=== PATIENT | female | born 1940 | race Caucasian/White ===

== ENCOUNTER 2017-02-05 12:40 | Emergency (ER) | payer MEDICARE, OTHER ==
[~2017-02-05 12:40] MED LIST: ADVAI250I INH; ADVAI250I PO; ALBU0.086 NEB; CARD240C6 PO; CLIN1CAP6 PO; COUM5TAB PO; CYMB30CA PO; DUONI NEB; ENAL10TA7 PO; FURO1TAB93 PO; GABA300C3 PO; GABA600T PO; HYDR-3535 PO; IPRA0.02 NEB; LEVO150T7 PO; LORTA10 PO; LOVA40TA PO; PRED10 PO; SPIRCAP INH; SYNT100T PO; TIOT18I INH; WARF5TAB PO; Z.0.OXYGENDME NC; [UNRECOGNIZED DRUG - SUPPLY]
[2017-02-05 13:10] VITALS: BP 135/76; PULSE 73; RESP 20; TEMP 98.3; O2SAT 93
[2017-02-05] MEDS ORDERED: LIPI10TA PO (13:16)
[2017-02-05] MEDS ORDERED: HYDR-4107 PO (13:16)
[2017-02-05] MEDS ORDERED: COUM1TAB PO (13:16)
[2017-02-05] MEDS ORDERED: GABA100C4 PO (13:16)
[2017-02-05] MEDS ORDERED: THYROID MED (13:16)
--- NOTE | 2017-02-05 13:27 | PD ---
HPI Chief Complaint: Respiratory Symptoms Time Seen by Provider: 13:05 Travel History International Travel<30 days: No Contact w/Intl Traveler<30days: No Traveled to known affect area: No History of Present Illness HPI The patient is a 76-year-old female who presents to the emergency department for shortness of breath. The patient has a history of COPD and normally uses nebulizers multiple times during the day. The daughter also states the patient will smoke after an albuterol nebulizer. However, they're currently without power and the patient has been having increasing shortness of breath. The patient is not oxygen dependent. She does have a history of COPD. The patient also has a history of recent dementia which has been progressing over the last several months. The daughter also states the patient recently had surgery on January 25 by a physician at [facility], surgery was performed in the lower aspect of the abdomen, they do note some clear drainage from the wound. The patient denies any fever, chest pain, but does complain of mild shortness of breath. She denies any nausea, vomiting, or abdominal pain. PFSH Past Medical History Arthritis: Yes Asthma: No Blood Disorders: No Anxiety: Yes Depression: Yes Heart Rhythm Problems: No Cancer: No High Cholesterol: Yes Chemotherapy: No Chest Pain: Yes Congestive Heart Failure: Yes COPD: Yes Cerebrovascular Accident: No Diabetes: No Deep Vein Thrombosis: Yes Endocrine: Yes Gastrointestinal Disorders: No Genitourinary: No Headaches: Yes Hepatitis: Yes (A) Hiatal Hernia: No Hypertension: Yes Immune Disorder: No Implanted Vascular Access Dvce: No Medical other: Yes (MORBID OBESITY) Musculoskeletal: Yes (DGD LUMBAR,HIP PAIN,RADICULOPATHY,LUMBAR SPONDYLOSIS) Neurologic: No Psychiatric: Yes Reproductive: No Respiratory: Yes Migraines: No Radiation Therapy: No Seizures: No Sleep Apnea: Yes (DOESNT USE CPAP AT HOME) Thyroid Disease: Yes (HYPO) Past Surgical History Abdominal Surgery: Yes (HYSTERCTOMY/CHOLECYSTECTOMY) Appendectomy: Yes Cardiac Surgery: No Cholecystectomy: Yes Ear Surgery: No Endocrine Surgery: No Eye Surgery: No Genitourinary Surgery: No Gynecologic Surgery: Yes Hysterectomy: Yes Neurologic Surgery: No Oral Surgery: No Thoracic Surgery: No Other Surgery: Yes (GB,APPENDECTOMY,TONCILECTOMY, MESH, WOUD DEBREIDMENT) Family History Family Hypercholesterolemia: Yes Social History Alcohol Use: No Tobacco Use: No Substance Use: No Allergies-Medications (Allergen,Severity, Reaction): Coded Allergies: cephalexin (Unverified Allergy, Severe, 02/05/17) Reported Meds & Prescriptions Reported Meds & Active Scripts Active Reported Lisinopril 20 Mg Tab 20 Mg PO DAILY Metoprolol Tartrate 25 Mg Tab 25 Mg PO DAILY Citalopram (Citalopram Hydrobromide) 10 Mg Tab 10 Mg PO DAILY Albuterol Neb (Albuterol Sulfate) 2.5 Mg/0.5 Ml Neb 2.5 Mg NEB 5 TIMES A DAY Note: The Albuterol Sulfate Inhalation Solution is concentrated and must be diluted. Read complete instructions carefully before using. Hydrocodone-Acetaminophen 5-300 Mg Tab Unknown Dose PO Q4H PRN Gabapentin 100 Mg Cap 600 Mg PO TID Coumadin (Warfarin) 1 Mg Tab 5 Mg PO DAILY Lipitor (Atorvastatin Calcium) 10 Mg Tab 40 Mg PO HS Review of Systems Except as stated in HPI: all other systems reviewed are Neg General / Constitutional: No: Fever Cardiovascular: No: Chest Pain or Discomfort Respiratory: Positive: Shortness of Breath, Wheezing, No: Cough Gastrointestinal: Positive: Other (wound on the anterior aspect of the abdomen) , No: Nausea, Vomiting Skin: Positive Other (draining wound that has clear liquid) Physical Exam Narrative GENERAL: Awake, alert, very pleasant 76-year-old female who appears her stated age and is in no acute respiratory distress. SKIN: Focused skin assessment warm/dry. HEAD: Atraumatic. Normocephalic. EYES: Pupils equal and round. No scleral icterus. No injection or drainage. ENT: No nasal bleeding or discharge. Mucous membranes pink and moist. NECK: Trachea midline. No JVD. CARDIOVASCULAR: Regular rate and rhythm. No murmur appreciated. RESPIRATORY: No accessory muscle use. Prolonged expiratory phase with wheezing. GASTROINTESTINAL: Abdomen soft, transverse incision on the lower aspect of the abdomen with clear drainage. No purulence noted. No surrounding erythema. MUSCULOSKELETAL: No obvious deformities. No clubbing. No cyanosis. No edema. NEUROLOGICAL: Awake and alert. No obvious cranial nerve deficits. Motor grossly within normal limits. Normal speech. Patient is oriented to person, Dr. , and grandson, but cannot tell me the month, year, or prepress operator. PSYCHIATRIC: Appropriate mood and affect; insight and judgment normal. Data Data Last Documented VS Vital Signs Date Time Temp Pulse Resp B/P (MAP) Pulse Ox O2 Delivery O2 Flow Rate FiO2 02/05/17 14:45 96 20 119/77 (91) 93 02/05/17 13:10 98.3 Orders Orders Complete Blood Count With Diff (02/05/17 13:21) Comprehensive Metabolic Panel (02/05/17 13:21) B-Type Natriuretic Peptide (02/05/17 13:21) Magnesium (Mg) (02/05/17 13:21) Ckmb (Isoenzyme) Profile (02/05/17 13:21) Troponin I (02/05/17 13:21) Urinalysis - C+S If Indicated (02/05/17 13:21) Iv Access Insert/Monitor (02/05/17 13:21) Electrocardiogram (02/05/17 13:21) Ecg Monitoring (02/05/17 13:21) Oximetry (02/05/17 13:21) Oxygen Administration (02/05/17 13:21) Chest, Single Ap (02/05/17 13:21) Sodium Chloride 0.9% Flush (Ns Flush) (02/05/17 13:30) Methylprednisolone So Succ Inj (Solumedr (02/05/17 13:30) Albuterol-Ipratropium Neb (Duoneb Neb) (02/05/17 13:30) CKMB (02/05/17 13:30) CKMB% (02/05/17 13:30) Furosemide Inj (Lasix Inj) (02/05/17 14:45) Labs Laboratory Tests Test 02/05/17 13:30 02/05/17 14:38 White Blood Count 6.2 TH/MM3 Red Blood Count 3.75 MIL/MM3 Hemoglobin 12.6 GM/DL Hematocrit 37.9 % Mean Corpuscular Volume 101.2 FL Mean Corpuscular Hemoglobin 33.7 PG Mean Corpuscular Hemoglobin Concent 33.3 % Red Cell Distribution Width 13.8 % Platelet Count 197 TH/MM3 Mean Platelet Volume 8.4 FL Neutrophils (%) (Auto) 52.4 % Lymphocytes (%) (Auto) 35.1 % Monocytes (%) (Auto) 7.9 % Eosinophils (%) (Auto) 3.5 % Basophils (%) (Auto) 1.1 % Neutrophils # (Auto) 3.2 TH/MM3 Lymphocytes # (Auto) 2.2 TH/MM3 Monocytes # (Auto) 0.5 TH/MM3 Eosinophils # (Auto) 0.2 TH/MM3 Basophils # (Auto) 0.1 TH/MM3 CBC Comment DIFF FINAL Differential Comment Blood Urea Nitrogen 11 MG/DL Creatinine 1.10 MG/DL Random Glucose 82 MG/DL Total Protein 6.4 GM/DL Albumin 2.6 GM/DL Calcium Level 8.2 MG/DL Magnesium Level 2.0 MG/DL Alkaline Phosphatase 83 U/L Aspartate Amino Transf (AST/SGOT) 15 U/L Alanine Aminotransferase (ALT/SGPT) 11 U/L Total Bilirubin 0.8 MG/DL Sodium Level 141 MEQ/L Potassium Level 3.8 MEQ/L Chloride Level 105 MEQ/L Carbon Dioxide Level 29.3 MEQ/L Anion Gap 7 MEQ/L Estimat Glomerular Filtration Rate 49 ML/MIN Total Creatine Kinase 230 U/L Creatine Kinase MB 1.8 NG/ML Creatine Kinase MB % 0.8 % Troponin I LESS THAN 0.02 NG/ML B-Type Natriuretic Peptide 668 PG/ML Urine Collection Type CLEAN CATCH Urine Color YELLOW Urine Turbidity CLEAR Urine pH 6.0 Urine Specific [place] 1.016 Urine Protein NEG mg/dL Urine Glucose (UA) NEG mg/dL Urine Ketones NEG mg/dL Urine Occult Blood NEG Urine Nitrite NEG Urine Bilirubin NEG Urine Leukocyte Esterase NEG Urine RBC 0-3 /hpf Urine WBC 0-2 /hpf Urine Squamous Epithelial Cells > 8 /hpf Microscopic Urinalysis Comment CULT NOT INDICATED Urine Collection Time 14:38 MDM Medical Decision Making Medical Screen Exam Complete: Yes Emergency Medical Condition: Yes Medical Record Reviewed: Yes Interpretation(s) EKG reveals sinus rhythm with bigeminy. Nonspecific T wave changes. Laboratory Tests Test 02/05/17 13:30 02/05/17 14:38 White Blood Count 6.2 TH/MM3 Red Blood Count 3.75 MIL/MM3 Hemoglobin 12.6 GM/DL Hematocrit 37.9 % Mean Corpuscular Volume 101.2 FL Mean Corpuscular Hemoglobin 33.7 PG Mean Corpuscular Hemoglobin Concent 33.3 % Red Cell Distribution Width 13.8 % Platelet Count 197 TH/MM3 Mean Platelet Volume 8.4 FL Neutrophils (%) (Auto) 52.4 % Lymphocytes (%) (Auto) 35.1 % Monocytes (%) (Auto) 7.9 % Eosinophils (%) (Auto) 3.5 % Basophils (%) (Auto) 1.1 % Neutrophils # (Auto) 3.2 TH/MM3 Lymphocytes # (Auto) 2.2 TH/MM3 Monocytes # (Auto) 0.5 TH/MM3 Eosinophils # (Auto) 0.2 TH/MM3 Basophils # (Auto) 0.1 TH/MM3 CBC Comment DIFF FINAL Differential Comment Blood Urea Nitrogen 11 MG/DL Creatinine 1.10 MG/DL Random Glucose 82 MG/DL Total Protein 6.4 GM/DL Albumin 2.6 GM/DL Calcium Level 8.2 MG/DL Magnesium Level 2.0 MG/DL Alkaline Phosphatase 83 U/L Aspartate Amino Transf (AST/SGOT) 15 U/L Alanine Aminotransferase (ALT/SGPT) 11 U/L Total Bilirubin 0.8 MG/DL Sodium Level 141 MEQ/L Potassium Level 3.8 MEQ/L Chloride Level 105 MEQ/L Carbon Dioxide Level 29.3 MEQ/L Anion Gap 7 MEQ/L Estimat Glomerular Filtration Rate 49 ML/MIN Total Creatine Kinase 230 U/L Creatine Kinase MB 1.8 NG/ML Creatine Kinase MB % 0.8 % Troponin I LESS THAN 0.02 NG/ML B-Type Natriuretic Peptide 668 PG/ML Urine Collection Type CLEAN CATCH Urine Color YELLOW Urine Turbidity CLEAR Urine pH 6.0 Urine Specific [place] 1.016 Urine Protein NEG mg/dL Urine Glucose (UA) NEG mg/dL Urine Ketones NEG mg/dL Urine Occult Blood NEG Urine Nitrite NEG Urine Bilirubin NEG Urine Leukocyte Esterase NEG Urine RBC 0-3 /hpf Urine WBC 0-2 /hpf Urine Squamous Epithelial Cells > 8 /hpf Microscopic Urinalysis Comment CULT NOT INDICATED Urine Collection Time 14:38 Chest x-ray reveals mild cardiomegaly with chronic interstitial changes and mild atelectatic changes at the left base. Differential Diagnosis Differential diagnosis includes COPD exacerbation, bronchitis, pneumonia, pleural effusion, congestive heart failure, UTI, delirium, dehydration, hyponatremia. Narrative Course IV was established, labs are drawn and sent, and the patient was placed on cardiac telemetry monitoring and continuous pulse oximetry monitoring. EKG was ordered and interpreted. Chest x-ray was obtained. The patient was administered Solu-Medrol 125 mg intravenously and duo nebs. Chest x-ray reveals chronic interstitial changes and cardiomegaly, no evidence of volume overload or pneumonia. ENT is elevated in the 600s, otherwise labs are unremarkable. The patient was administered Lasix, head. Urine output on bedside commode. The patient now has a generator and will be able to do her nebulizers at home. Therefore, patient be discharged home on prednisone and nebulizers. She is advised to follow-up with her primary physician and return if symptoms worsen or progress. Diagnosis Primary Impression: COPD (chronic obstructive pulmonary disease) Qualified Codes: J44.9 - Chronic obstructive pulmonary disease, unspecified Additional Impressions: Congestive heart failure Qualified Codes: I50.9 - Heart failure, unspecified Dyspnea Qualified Codes: R06.02 - Shortness of breath Patient Instructions: General Instructions Additional Instructions: Medications as directed. Follow-up with your primary physician. Return if symptoms worsen or progress. Please provide the patient a copy of her labs and chest x-ray results at discharge. Med/Other Pt SpecificInfo: Prescription(s) given Scripts Albuterol Neb (Albuterol Neb) 2.5 Mg/3 Ml Neb 2.5 MG NEB Q4HR NEB for Breathing Treatment, #60 NEBULE 0 Refills While awake Prov: Manjinder Skelton MD 02/05/17 Prednisone (Deltasone) 20 Mg Tab 40 MG PO DAILY for 4 Days, #8 TAB 0 Refills Prov: Manjinder Skelton MD 02/05/17 Disposition: 01 DISCHARGE HOME Condition: Stable Manjinder Skelton MD Feb 05, 2017 13:27
[2017-02-05] MEDS ORDERED: SODIUM CHLORIDE 0.9% FLUSH 10 ML FLUSH IVF PRN (13:30)
[2017-02-05] MEDS ORDERED: methylPREDNISolone SOD SUCC 125 MG/2 ML VIAL IVP ONE (13:30)
[2017-02-05] MEDS: RESP: ALBUTEROL 2.5 MG/IPRATROPIUM 0.5 MG NEB (SCH) INH (13:33)
[2017-02-05] MEDS ORDERED: CITA10TA4 PO (13:33)
[2017-02-05] MEDS ORDERED: METO25TA3 PO (13:33)
[2017-02-05] MEDS ORDERED: LISI-515 PO (13:33)
[2017-02-05] MEDS ORDERED: ALBU.5I NEB (13:33)
[2017-02-05 13:35] VITALS: O2SAT 94
[2017-02-05 13:36] LABS: AUTOMATED NEUTROPHIL # 3.2 TH/MM3 (1.8-7.7); BASOPHIL # 0.1 TH/MM3 (0-0.2); BASOPHIL % 1.1 % (0.0-2.0); EOSINOPHIL # 0.2 TH/MM3 (0-0.4); EOSINOPHIL % 3.5 % (0.0-4.0); HEMATOCRIT 37.9 % (35.0-46.0); HEMO FLAGS DIFF FINAL; LYMPH % 35.1 % (9.0-44.0); LYMPHOCYTE # 2.2 TH/MM3 (1.0-4.8); MEAN CELL VOLUME 101.2 FL (80.0-100.0); MEAN CORPUSCULAR HEMOGLOBIN 33.7 PG (27.0-34.0); MEAN CORPUSCULAR HGB CONC 33.3 % (32.0-36.0); MONO % 7.9 % (0.0-8.0); NEUT % 52.4 % (16.0-70.0); PLATELET COUNT 197 TH/MM3 (150-450); RED BLOOD COUNT 3.75 MIL/MM3 (4.00-5.30); RED CELL DISTRIBUTION WIDTH 13.8 % (11.6-17.2); WHITE BLOOD COUNT 6.2 TH/MM3 (4.0-11.0)
[2017-02-05 13:42] LABS: CHLORIDE 105 MEQ/L (98-107); POTASSIUM 3.8 MEQ/L (3.5-5.1); SODIUM (NA) 141 MEQ/L (136-145)
[2017-02-05 13:45] LABS: ANION GAP 7 MEQ/L (5-15); BICARBONATE 29.3 MEQ/L (21.0-32.0)
[2017-02-05 13:46] LABS: BLOOD UREA NITROGEN 11 MG/DL (7-18)
[2017-02-05 13:48] LABS: ALT (GPT) 11 U/L (10-53)
[2017-02-05 13:49] LABS: AST (GOT) 15 U/L (15-37); GLOMERULAR FILTRATION RATE 49 ML/MIN (>89)
[2017-02-05 13:50] LABS: TOTAL BILIRUBIN ADULT 0.8 MG/DL (0.2-1.0)
[2017-02-05 13:51] LABS: ALKALINE PHOSPHATASE 83 U/L (45-117); CREATINE KINASE 230 U/L (26-192)
[2017-02-05 14:04] LABS: CKMB 1.8 NG/ML (0.5-3.6)
[2017-02-05 14:45] VITALS: BP 119/77; PULSE 96; RESP 20; O2SAT 93
[2017-02-05] MEDS ORDERED: FUROSEMIDE 40 MG/4 ML VIAL IV PUSH ONE (14:45)
[2017-02-05 14:52] LABS: BLOOD, URINE NEG (NEG); GLUCOSE,URINE NEG (NEG); KETONE, URINE NEG (NEG); NITRITE,URINE NEG (NEG)
[2017-02-05 14:59] LABS: COMMENT (UR) CULT NOT INDICATED; CULTURE IF INDICATED CULT NOT INDICATED; METHOD OF COLLECTION CLEAN CATCH; RBC, URINE 0-3 /hpf (0-3); SQUAMOUS EPITHELIAL CELL URINE > 8 /hpf (0-5); URINE COLOR YELLOW (YELLW/STRAW); WBC, URINE 0-2 /hpf (0-5)
--- NOTE | 2017-02-05 15:19 | RADRPT ---
EXAM DATE/TIME: 02/05/2017 13:33 [facility] COMPARISON: CHEST SINGLE AP, January 20, 2014, 16:26. TIBIA/FIBULA LEFT (AP/LAT), January 20, 2014, 18:34. INDICATIONS : Short of breath. MEDICAL HISTORY : Chronic obstructive pulmonary disease. SURGICAL HISTORY : None. ENCOUNTER: Initial ACUITY: 2 days PAIN SCORE: 0/10 LOCATION: Bilateral chest FINDINGS: Heart is mildly enlarged. The lungs demonstrate some diffuse interstitial prominence with mild atelec tatic changes at the left base. Changes are similar to previous of 01/20/14. There is no pleural effus ion. The visualized bony structures are grossly intact. CONCLUSION: Mild cardiomegaly with chronic interstitial changes and mild atelectatic changes at the left base. Arden Mott MD on February 05, 2017 at 15:17 Board Certified Radiologist. This report was verified electronically.
[2017-02-05] MEDS ORDERED: PRED-503 PO (15:28)
[2017-02-05] MEDS ORDERED: ALBU0.08 NEB (15:28)
--- NOTE | 2017-02-06 21:55 | EKG ---
Date Performed: 02/05/2017 Time Performed: 13:03:33 PTAGE: 76 years EKG: Sinus rhythm WITH FREQUENT VENTRICULAR PREMATURE COMPLEXES IN A BIGEMINAL PATTERN NONSPECIFIC T-WAVE ABNORMALITY ABNORMAL RHYTHM ECG PREVIOUS TRACING : 01/23/2014 01.46 Compared to the previous tracing a fib no longer present DOCTOR: Hannah Vieira Interpretating Date/Time 02/06/2017 21:54:12
== END 2017-02-05 15:58 | disposition home or self-care (01) ==
LOC: PHED 12:40
DX: J44.9 Chronic obstructive pulmonary disease, unspecified (principal); I50.9 Heart failure, unspecified; I11.0 Hypertensive heart disease with heart failure; Z86.718 Personal history of other venous thrombosis and embolism
CPT/HCPCS: 71010; 80053; 81001; 82550; 82552; 83735; 83880; 84484; 85025; 93005; 94640; 94664; 96374; 96375; 99285; J1940; J2930